=== PATIENT | female | born 1980 | race Hispanic/Latino ===

== ENCOUNTER → 2018-08-06 18:24 | Outpatient (REF) | payer OTHER, SELFPAY ==
[2018-08-06 20:20] LABS: Urine N gonorrhoeae NOT DETECTED
[2018-08-06 20:43] LABS: Urine Chlamydia NOT DETECTED
== END ==
LOC: LAB 18:24
PROVIDERS: Visit Provider Family Medicine
DX: Z30.430 Encounter for insertion of intrauterine contraceptive device (principal)
CPT/HCPCS: 87491; 87591

== ENCOUNTER → 2022-08-08 08:18 | Outpatient (CLI) | payer OTHER, SELFPAY ==
[2022-08-08 10:14] LABS: Rubella Antibody IgG 14.6 IU/mL (>15)
[2022-08-09 07:59] LABS: Rubeola Measles IgG > 300.0 AU/mL (Immune >16.4)
== END ==
PROVIDERS: PCP Internal Medicine; Referring Provider Internal Medicine; Visit Provider Internal Medicine
DX: Z02.1 Encounter for pre-employment examination (principal)
CPT/HCPCS: 36415; 86735; 86762; 86765

== ENCOUNTER → 2023-03-16 06:58 | Outpatient (CLI) | payer OTHER, SELFPAY ==
[2023-03-16 08:50] LABS: Add Manual Diff / Slide Review NO; Basophils Absolute Auto 0 /uL (0-100); Basophils Percent Auto 0.7 % (0-2); Eosinophils Absolute Auto 0 /uL (0-450); Eosinophils Percent Auto 0.6 % (2-4); Hematocrit 38.9 % (36-46); Hemoglobin 13.4 g/dL (12.0-16.0); Lymphocytes Absolute Auto 2200 /uL (1100-4500); Lymphocytes Percent Auto 30.3 % (25-40); Mean Corpuscular HGB Conc 34.4 % (30-36); Mean Corpuscular Hemoglobin 29.1 PG (26-34); Mean Corpuscular Volume 84.8 fL (80-100); Monocytes Absolute Auto 400 /uL (0-900); Monocytes Percent Auto 6.2 % (3-14); Neutrophils Absolute Auto 4500 /uL (1500-7000); Neutrophils Percent Auto 62.2 % (50-75); Platelet Count 193 X10^3/uL (150-400); Red Blood Cell Count 4.59 X10^6/uL (4.0-5.2); Red Cell Distribution Width 13.2 % (11.6-14.8); White Blood Cell Count 7.2 X10^3/uL (4.5-11.0)
[2023-03-16 09:02] LABS: Hemoglobin A1C% w Est Avg Glu 5.6 % (4.0-6.0)
[2023-03-16 09:24] LABS: Alanine Aminotransferase 17 IU/L (<35); Albumin 3.7 g/dL (3.5-5.0); Albumin Globulin Ratio 1.3 (1.0-2.8); Alkaline Phosphatase 48 U/L (38-126); Aspartate Aminotransferase 20 IU/L (14-36); BUN Creatinine Ratio 14.1 (6-22); Bilirubin Total 0.7 mg/dL (0.2-1.3); Blood Urea Nitrogen 9 mg/dL (7-17); Calcium 8.9 mg/dL (8.4-10.2); Carbon Dioxide 24 mmol/L (22-32); Chloride 101 mmol/L (98-107); Cholesterol 222 mg/dL (140-199); Estimated Glomerular Filt Rate > 60 mL/min (>60); Globulin 2.9 g/dL (1.7-4.1); Glucose 89 mg/dL (70-100); HDL Cholesterol 59 mg/dL (40-60); HEMOLYSIS < 15 (0-50); LDL Cholesterol Calculated 143 mg/dL (<100); Potassium 4.4 mmol/L (3.4-5.1); Sodium 134 mmol/L (137-145); Total Protein 6.6 g/dL (6.3-8.2); Triglycerides 99 mg/dL (35-150)
[2023-03-16 10:59] LABS: HIV 1 & 2 Ab/Ag 4th Gen Combo NEGATIVE (NEGATIVE); Hep C Virus Ab w/Reflex Quant NEGATIVE s/c (NEGATIVE)
== END ==
PROVIDERS: PCP Family Medicine; Referring Provider Family Medicine; Visit Provider Family Medicine
DX: Z00.00 Encounter for general adult medical examination without abnormal findings (principal); R10.32 Left lower quadrant pain; Z83.3 Family history of diabetes mellitus
CPT/HCPCS: 36415; 80053; 80061; 83036; 85025; 86803; 87389

== ENCOUNTER → 2023-03-17 | Outpatient (CLI) | payer OTHER, SELFPAY ==
--- NOTE | 2023-03-17 08:15 | DI.MG.S_ITS ---
BILATERAL DIGITAL SCREENING MAMMOGRAM 3D/2D WITH CAD: 03/17/2023 CLINICAL: Routine screening. Baseline exam. No prior exams were available for comparison. Both breasts are heterogeneously dense, which may obscure small masses (category c / 51-75% glandular tissue). Current study was also evaluated with a Computer Aided Detection (CAD) system. No significant masses, calcifications, or other findings are seen in either breast. IMPRESSION: NEGATIVE There is no mammographic evidence of malignancy. A 1 year screening mammogram is recommended. Based on the Tyrer Cuzick model (a risk assessment model) the patient's lifetime risk is 15.8% and her 10 year risk is 2.9%. According to the ACR, ACS, and NCCN guidelines, an annual breast MRI exam along with mammogram is recommended if the patient's lifetime risk is 20% or greater. This exam was interpreted at Station ID: [id number]. NOTE: For mammograms, a report in lay terms will be sent to the patient. Approximately 15% of breast malignancies will not be visualized mammographically. In the management of a palpable breast mass, a negative mammogram must not discourage biopsy of a clinically suspicious lesion. Electronically Signed By: Shaka vang/blank:03/22/2023 07:54:47 letter sent: Normal Exam ACR BI-RADS Category 1: Negative 3341F
== END ==
LOC: MAMMO 08:14
PROVIDERS: PCP Family Medicine; Referring Provider Family Medicine; Visit Provider Family Medicine
DX: Z12.31 Encounter for screening mammogram for malignant neoplasm of breast (principal)
CPT/HCPCS: 77063; 77067

== ENCOUNTER 2023-11-16 11:24 | Day surgery (SDC) | payer OTHER, SELFPAY ==
--- NOTE | 2023-11-16 | PATH_ITS ---
[facility] Accession Number: [id number] No. of containers..01 Tissue . 01 Material submitted: . colon - SIGMOID POLYP . 01 Diagnosis: SIGMOID POLYP: Hyperplastic polyp. [facility] 11/21/2023 1415 Local . 01 Electronically signed: . Lanre Arteaga MD, Pathologist NPI- [id number] . 01 Gross description: . SIGMOID POLYP: Received in formalin is 1 fragment(s) of herrera, soft tissue measuring 0.4 x 0.4 x 0.3 cm submitted entirely in 1 cassette(s) /SANDIP 11/21/2023 1415 Local . 01 Pathologist provided ICD-10: K63.5 . 01 CPT . 641567 Specimen Comment: A courtesy copy of this report has been sent to [phone] Performed at: [address] [facility] [id number] MD Lanre Arteaga MD Phone: [phone]
[2023-11-16] MEDS: LACTATED RINGERS 1,000 ML 42 ML IV (11:40)
[2023-11-16 11:48] VITALS: BP 121/89; PULSE 97; RESP 18; TEMP 37.1; O2SAT 97
--- NOTE | 2023-11-16 12:43 | P.HP_ITS ---
History of Present Illness History of Present Illness Date Patient Seen: 11/16/23 Time Patient Seen: 12:43 Chief complaint: Screening Colonoscopy Narrative: 43-year-old woman here for 1st time screening colonoscopy. No family history of colon cancer. No abdominal concerns today. [facility] Surgical History (Updated 03/22/23 @ 21:33 by Sierra Nelson) Anesthesia S/P removal of ovarian cyst S/P section (~03/30/18) Family History (Updated 03/22/23 @ 21:33 by Sierra Nelson) Father Stroke Mother Diabetes mellitus Brother Diabetes mellitus Social History marital status: number of children: 1 occupational status: previously employed (Teacher) Smoking Status: Never smoker alcohol intake: current substance use type: marijuana (previously) and other (Ectasy six months before ) Meds Home Medications and Allergies Home Medications Medication Instructions Recorded Confirmed Type sodium,potassium,mag sulfates 17.5 See Rx Instructions PO .COMPLEX 03/08/23 11/16/23 Rx gram-3.13 gram-1.6 gram oral soln #354 mL (Suprep Bowel Prep Kit) tretinoin 0.025 % topical cream 1 applic topical ONCE PM 11/16/23 11/16/23 History Allergies Allergy/AdvReac Type Severity Reaction Status Date / Time No Known Drug Allergies Allergy Verified 11/16/23 11:56 Exam Vital Signs (past 8 hours): - 11/16/23 11:48 Temperature 98.8 F Pulse Rate 97 H Respiratory Rate 18 Blood Pressure 121/89 Pulse Oximetry 97 Oxygen Delivery Method Room Air Oxygen Delivery Method Room Air Narrative Exam Narrative: General adult woman alert oriented no acute distress Chest nonlabored respiration Extremities warm well perfused Assessment & Plan Assessment & Plan narrative: The patient requires colorectal screening and colonoscopy is recommended. Technical details were discussed. Risks, benefits, alternatives explained. Risks including but not limited to myocardial infarction, aspiration, bleeding, pain, missed lesion, incomplete examination, need for further radiographic studies, intestinal injury, and need for major abdominal surgery were discussed. All questions were answered to their satisfaction, and they are in agreement with this plan. Time-Based Coding :: [TOTAL MINUTES] spent with patient and on the chart (including review of chart, obtaining history, exam, reviewing outside data, placing orders, documenting exam and treatment plan, and counseling patient) on [DATE].
--- NOTE | 2023-11-16 12:44 | P.OP.COLON_ITS ---
Operative Date/Time/Diagnoses Date of procedure: 11/16/23 Time of procedure: 12:44 Pre-op diagnosis: Colorectal screening Procedure & Clinicians Study performed: Screening colonoscopy Same procedure as scheduled: Yes Indications: Colorectal screening Surgeon: Sergo Espinal Procedure Notes Procedure in detail: The history and physical was performed/updated and the patient is ASA class is 2. The procedure was discussed in detail with the patient. Potential risks co mplications including infection, bleeding, missed diagnosis, perforation, need for surgery, and were explained. Their questions were answered and informed consent was obtained. Patient was brought to the procedure room and placed standard monitoring equipment. The patient's vital signs were monitored continuously throughout the entire procedure. Prior to starting time-out was performed. The patient was placed in the left lateral recumbent position. Procedural sedation was administered by anesthesia. Examination began with a thorough inspection of the perianal area there was no evidence of fissures, fistulae, external hemorrhoids or cutaneous malignancy. The colonoscopy scope was then placed into the anal canal and was advanced to the cecum, which was identified by the ileocecal valve, the appendiceal orifice and the confluence of the taenia. The scope was then slowly withdrawn examining colon thoroughly in all directions, irrigating it of any residual stool. The scope was retroflexed within the rectum The patient tolerated the procedure well. They will be discharged once criteria are met. The prep was of good/excellent quality. The withdrawl time was 7 minutes. FINDINGS * Sigmoid colon 3 mm polyp likely hyperplastic removed with Jumbo forceps. Specimen(s): other (Sigmoid colon polyp) Impression: Colonic polyp x1 Post-procedure Plan for aftercare: Follow-up is dependent on pathology findings. Disposition: same day surgery
[2023-11-16 13:11] VITALS: BP 94/57; PULSE 88; RESP 14; TEMP 36.8; O2SAT 94
[2023-11-16 13:16] VITALS: BP 101/72; PULSE 95; RESP 14; O2SAT 99
[2023-11-16 13:21] VITALS: BP 121/72; PULSE 86; RESP 15; O2SAT 100
[2023-11-16 13:24] VITALS: BP 121/66; PULSE 67; RESP 14; O2SAT 98
== END 2023-11-16 13:30 | disposition home or self-care (01) ==
PROVIDERS: PCP Family Medicine; Referring Provider Surgery; Visit Provider Surgery
PROC: 0DJD8ZZ Inspection of Lower Intestinal Tract, Via Natural or Artificial Opening Endoscopic (ICD-10-PCS; CPT 45378; principal; 2023-11-16 12:30)
DX: Z12.11 Encounter for screening for malignant neoplasm of colon (principal); K63.5 Polyp of colon
CPT/HCPCS: 45380; J2704

== ENCOUNTER → 2024-03-29 08:59 | Outpatient (CLI) | payer OTHER, SELFPAY ==
--- NOTE | 2024-03-29 08:59 | DI.MG.S_ITS ---
BILATERAL DIGITAL SCREENING MAMMOGRAM 3D/2D WITH CAD: 03/29/2024 CLINICAL: Routine screening. Comparison is made to exam dated: 03/17/2023 mammogram - [facility]. The breasts are heterogeneously dense, which may obscure small masses (category c / 51-75% glandular tissue). Current study was also evaluated with a Computer Aided Detection (CAD) system. There is a possible developing irregular equal density asymmetry in the left breast central to the nipple posterior depth. This is more prominent. No other significant masses, calcifications, or other findings are seen in either breast. IMPRESSION: INCOMPLETE: NEED ADDITIONAL IMAGING EVALUATION The possible developing irregular equal density asymmetry in the left breast is indeterminate. Exaggerated CC views as well as additional views with possible ultrasound are recommended. Based on the Tyrer Cuzick model (a risk assessment model) the patient's lifetime risk is 15.6% and her 10 year risk is 3.2%. According to the ACR, ACS, and NCCN guidelines, an annual breast MRI exam along with mammogram is recommended if the patient's lifetime risk is 20% or greater. This exam was interpreted at Station ID: [id number]. NOTE: For mammograms, a report in lay terms will be sent to the patient. Approximately 15% of breast malignancies will not be visualized mammographically. In the management of a palpable breast mass, a negative mammogram must not discourage biopsy of a clinically suspicious lesion. Electronically Signed By: Dimple molina/blank:03/31/2024 09:50:22 letter sent: Additional Imaging Needed ACR BI-RADS Category 0: Incomplete: Need Additional Imaging Evaluation
== END ==
PROVIDERS: PCP Family Medicine; Referring Provider Family Medicine; Visit Provider Family Medicine
DX: Z12.31 Encounter for screening mammogram for malignant neoplasm of breast (principal); R92.333 Mammographic heterogeneous density, bilateral breasts
CPT/HCPCS: 77063; 77067

== ENCOUNTER → 2024-04-04 07:06 | Outpatient (CLI) | payer OTHER, SELFPAY ==
[2024-04-04 08:17] LABS: Alanine Aminotransferase 21 IU/L (<35); Albumin 3.6 g/dL (3.5-5.0); Albumin Globulin Ratio 1.2 (1.0-2.8); Alkaline Phosphatase 54 U/L (38-126); Aspartate Aminotransferase 26 IU/L (14-36); BUN Creatinine Ratio 13.2 (6-22); Bilirubin Total 0.4 mg/dL (0.2-1.3); Blood Urea Nitrogen 9 mg/dL (7-17); Calcium 9.1 mg/dL (8.4-10.2); Carbon Dioxide 25 mmol/L (22-32); Chloride 107 mmol/L (98-107); Cholesterol 204 mg/dL (140-199); Estimated Glomerular Filt Rate > 60 mL/min (>60); Globulin 2.9 g/dL (1.7-4.1); Glucose 100 mg/dL (70-100); HDL Cholesterol 53 mg/dL (40-60); HEMOLYSIS < 15 (0-50); Hemoglobin A1C% w Est Avg Glu 5.2 % (4.0-6.0); LDL Cholesterol Calculated 131 mg/dL (<100); Sodium 135 mmol/L (137-145); Total Protein 6.5 g/dL (6.3-8.2); Triglycerides 99 mg/dL (35-150)
== END ==
PROVIDERS: PCP Family Medicine; Referring Provider Family Medicine; Visit Provider Family Medicine
DX: Z00.00 Encounter for general adult medical examination without abnormal findings (principal); E78.5 Hyperlipidemia, unspecified
CPT/HCPCS: 36415; 80053; 80061; 83036

== ENCOUNTER → 2024-05-01 08:37 | Outpatient (CLI) | payer OTHER, SELFPAY ==
--- NOTE | 2024-05-01 08:39 | DI.US.S_ITS ---
LIMITED ULTRASOUND OF LEFT BREAST: 05/01/2024 CLINICAL: Patient returns today to evaluate a focal asymmetry in the left breast. Comparison is made to exams dated: 05/01/2024 mammogram, 03/29/2024 mammogram, and 03/17/2023 mammogram - [facility]. Real-time ultrasound of the left breast 1 o'clock region was performed. Ponce scale images of the real-time examination were reviewed. No significant abnormalities were seen sonographically in the left breast. Specifically, no finding to correspond to the patient's less prominent, probably fibroglandular tissue seen on screening mammography. IMPRESSION: PROBABLY BENIGN No sonographic correlate to the screening mammogram finding. A follow-up mammogram in 6 months is recommended to demonstrate stability. Findings and recommendations were conveyed to the patient at time of exam. This exam was interpreted at Station ID: [id number]. Electronically Signed By: Dimple molina/:05/01/2024 10:02:44 letter sent: Followup Recommended ACR BI-RADS Category 3: Probably Benign
--- NOTE | 2024-05-01 08:39 | DI.MG.S_ITS ---
UNILATERAL LEFT DIGITAL DIAGNOSTIC MAMMOGRAM 3D/2D WITH ADDITIONAL VIEWS: 05/01/2024 CLINICAL: Additional evaluation requested from prior study. Comparison is made to exams dated: 03/29/2024 mammogram and 03/17/2023 mammogram - [facility]. The breasts are heterogeneously dense, which may obscure small masses (category c / 51-75% glandular tissue). There is a possible irregular high density asymmetry in the left breast central to the nipple posterior depth. This is not confirmed with additional views. This is less prominent. No other significant masses or calcifications are seen in the breast. IMPRESSION: INCOMPLETE: NEED ADDITIONAL IMAGING EVALUATION The possible irregular high density asymmetry in the left breast most likely is fibroglandular tissue but remains iindeterminate. An ultrasound is recommended. This was performed immediately following this exam. Based on the Tyrer Cuzick model (a risk assessment model) the patient's lifetime risk is 15.6% and her 10 year risk is 3.2%. According to the ACR, ACS, and NCCN guidelines, an annual breast MRI exam along with mammogram is recommended if the patient's lifetime risk is 20% or greater. This exam was interpreted at Station ID: [id number]. NOTE: For mammograms, a report in lay terms will be sent to the patient. Approximately 15% of breast malignancies will not be visualized mammographically. In the management of a palpable breast mass, a negative mammogram must not discourage biopsy of a clinically suspicious lesion. Electronically Signed By: Dimple molina/:05/01/2024 10:01:43 letter sent: Additional Imaging Needed ACR BI-RADS Category 0: Incomplete: Need Additional Imaging Evaluation
== END ==
PROVIDERS: PCP Family Medicine; Referring Provider Family Medicine; Visit Provider Family Medicine
DX: R92.8 Other abnormal and inconclusive findings on diagnostic imaging of breast (principal); R92.333 Mammographic heterogeneous density, bilateral breasts
CPT/HCPCS: 76642; 77065; G0279

== ENCOUNTER → 2024-10-24 08:42 | Outpatient (CLI) | payer OTHER, SELFPAY ==
--- NOTE | 2024-10-24 08:43 | DI.MG.S_ITS ---
MM diagnostic mammo unilat LT: 10/24/2024. BI-RADS: 3 CLINICAL: 44-year old female for left diagnostic mammogram that is a follow-up to ultrasound, left on 05/01/2024. Tyrer-Cuzick lifetime risk of 18.6%. No personal or first-degree family history of breast cancer. Current reported family history of breast cancer: maternal aunt. PRIOR EXAMS 05/01/2024, 03/29/2024, 03/17/2023. MAMMOGRAPHY TECHNIQUE: 2D and 3D (tomosynthesis) digital mammographic views obtained, with additional images as needed for full coverage. Current study was also evaluated with a Computer Aided Detection (CAD) system. DENSITY Left: C. The breasts are heterogeneously dense, which may obscure small masses. MAMMOGRAPHY FINDINGS Left: MLO only, Upper, Posterior depth: There is an asymmetry seen only on one view that is unchanged in size and appearance. This asymmetry does not correlate with ultrasound findings. IMPRESSION: Left (Asymmetry): MLO only, Upper, Posterior depth * Probably Benign. RECOMMENDATIONS Left: MLO only, Upper, Posterior depth * Six month followup with diagnostic mammography. When the patient returns for short-term unilateral followup, a mammogram for the contralateral breast will also be due. OVERALL ASSESSMENT CATEGORY BI-RADS-3: Probably Benign. ELECTRONICALLY SIGNED: Remy Zhao M.D. on 10/24/2024 at 09:56:09 AM PT Interpreting Station ID: [id number]
== END ==
LOC: MAMMO 08:43
PROVIDERS: PCP Family Medicine; Referring Provider Family Medicine; Visit Provider Family Medicine
DX: R92.8 Other abnormal and inconclusive findings on diagnostic imaging of breast (principal); Z80.3 Family history of malignant neoplasm of breast; R92.332 Mammographic heterogeneous density, left breast; N64.89 Other specified disorders of breast
CPT/HCPCS: 77065; G0279